=== PATIENT | male | born 1945 | race Caucasian/White ===

== ENCOUNTER 2020-02-27 17:36 | Emergency (ER) | payer BC ==
[~2020-02-27] VITALS: Ht 170.2 cm; Wt 93.0 kg
[2020-02-27] MEDS ORDERED: CHILDREN'S ASPI81 M1 PO (17:47)
[2020-02-27] MEDS ORDERED: LISINOPRIL (17:48)
[2020-02-27] MEDS ORDERED: GLIPIZIDE 10 MG10 MG PO (17:48)
[2020-02-27] MEDS ORDERED: CYMBALTA20 MG PO (17:48)
[2020-02-27] MEDS ORDERED: NEURONTIN 300M300 M2 PO (17:48)
[2020-02-27] MEDS ORDERED: CIPROFLOXIN HC2.5 M1 OPHTHALMIC (19:23)
[2020-02-27 20:34] VITALS: BP 139/67
== END 2020-02-27 20:35 | disposition home or self-care (01) ==
LOC: M.ERS 17:36
DX: S05.32XA Ocular laceration without prolapse or loss of intraocular tissue, left eye, initial encounter (principal); H11.32 Conjunctival hemorrhage, left eye; Y99.8 Other external cause status; I10 Essential (primary) hypertension; E11.9 Type 2 diabetes mellitus without complications; Z88.0 Allergy status to penicillin; W22.8XXA Striking against or struck by other objects, initial encounter; Y93.89 Activity, other specified; Y92.89 Other specified places as the place of occurrence of the external cause